=== PATIENT | male | born 1970 | race Caucasian/White ===

== ENCOUNTER 2016-10-19 14:06 | Emergency (ER) | payer BC ==
[2016-10-19 14:42] VITALS: BP 123/82
--- NOTE | 2016-10-19 15:03 | UC ---
Respiratory Complaint HPI - HPI Summary HPI Summary: cough (mild), profuse sinus drainage, headache, back ache, malaise for 5 days[address] with a ST but this is better. Non-smoker, no asthma - History of Current Complaint Chief Complaint: UCRespiratory Stated Complaint: SINUS PRESSURE,CHILLS,LOW BACK PAIN Time Seen by Provider: 10/19/16 14:35 Hx Obtained From: Patient Onset/Duration: Gradual Onset, Lasting Days - 5 Timing: Constant Severity Initially: Mild Severity Currently: Mild Character: Cough: Nonproductive Aggravating Factors: Recumbent Position Alleviating Factors: Nothing Associated Signs And Symptoms: Positive: Chills, URI, Nasal Congestion, Hoarseness, Sinus Discomfort Related History: Similar Episode/Dx as: - bronchitis, sinusitis - Risk Factors Pulmonary Embolism Risk Factors: Negative Cardiac Risk Factors: Negative Pseudomonas Risk Factors: Negative Tuberculosis Risk Factors: Negative - Allergies/Home Medications Allergies/Adverse Reactions: Allergies Allergy/AdvReac Type Severity Reaction Status Date / Time Penicillins Allergy Intermediate Rash Verified 10/19/16 14:37 PMH/Surg Hx/FS Hx/Imm Hx Endocrine History Of: Denies: Diabetes, Thyroid Disease Cardiovascular History Of: Reports: Cardiac Disorders - MURMER Denies: Hypertension Respiratory History Of: Reports: Asthma - A CHILD Denies: COPD GI/ History Of: Denies: Ulcer - Surgical History Surgical History: Yes Surgery Procedure, Year, and Place: Left hand surgery - Family History Known Family History: Positive: Unknown - not aware of any diseases in his family - Social History Occupation: Employed Full-time Lives: With Family Alcohol Use: None Substance Use Type: None Smoking Status (MU): Never Smoked Tobacco - Immunization History Most Recent Influenza Vaccination: NEVER Review of Systems Constitutional: Fever - first few days, Fatigue Skin: Negative Eyes: Negative ENT: Sore Throat, Nasal Discharge Respiratory: Cough Cardiovascular: Negative Gastrointestinal: Negative Genitourinary: Negative Motor: Negative Neurovascular: Negative Musculoskeletal: Negative Neurological: Negative Psychological: Negative All Other Systems Reviewed And Are Negative: Yes Physical Exam Triage Information Reviewed: Yes Appearance: Well-Appearing, No Pain Distress, Well-Nourished Vital Signs: Initial Vital Signs Temp 97.6 F 10/19/16 14:38 Pulse 98 10/19/16 14:38 Resp 16 10/19/16 14:38 BP 123/82 10/19/16 14:38 Pulse Ox 96 10/19/16 14:38 Vital Signs Reviewed: Yes Eye Exam: Normal Eyes: Positive: Conjunctiva Clear ENT: Positive: Hearing grossly normal, Pharyngeal erythema, Nasal congestion, Nasal drainage, TMs normal. Negative: Tonsillar swelling, Tonsillar exudate, Trismus, Muffled/hoarse voice Dental Exam: Normal Neck exam: Normal Neck: Positive: Supple Respiratory Exam: Normal Respiratory: Positive: Lungs clear, Normal breath sounds Cardiovascular Exam: Normal Musculoskeletal Exam: Normal Neurological Exam: Normal Psychological Exam: Normal Skin Exam: Normal UC Diagnostic Evaluation - Laboratory O2 Sat by Pulse Oximetry: 96 Respiratory Course/Dx - Differential Dx/Diagnosis Differential Diagnosis/HQI/PQRI: Bronchitis, Lower Resp Infection, Sinusitis Provider Diagnoses: URI Discharge - Discharge Plan Condition: Stable Disposition: HOME Prescriptions: Azithromycin TAB* [Zithromax TAB (Z-ANAND)*] 250 mg PO .Z-ANAND INSTRUCTIONS #6 tab Hydrocodone Polistirex-Chlorph [Tussionex Pennkinetic Ext 10-8 mg/5Ml] 1 teasp PO BID PRN #100 ml MDD 10cc PRN Reason: Cough Pseudoephedrine HCl [Sudafed 12 Hour] 120 mg PO BID PRN #20 tab PRN Reason: Congestion Patient Education Materials: Upper Respiratory Infection (ED) Referrals: Nancy Anna MD [Primary Care Provider] - Additional Instructions: You can fight this viral infection without an antibiotic. Hold the zithromax in reserve, in case you get worse with fevers over 101, trouble breathing, vomiting , or worsening symptoms
== END 2016-10-19 15:09 | disposition home or self-care (01) ==
LOC: UCCORT 14:06
DX: J06.9 Acute upper respiratory infection, unspecified (principal); Z88.0 Allergy status to penicillin
CPT/HCPCS: 99212; G0463

== ENCOUNTER 2017-03-05 10:22 | Emergency (ER) | payer BC ==
[2017-03-05 11:30] VITALS: BP 111/77
--- NOTE | 2017-03-05 12:10 | UC ---
Skin Complaint HPI - HPI Summary HPI Summary: "c/o thorn from an apple tree in head that occurred last night while at work." He hit the jassi of his head as he was going under a tree. he can't see what's up there. No fevers or chills. no discrge or bleeding that he knows of. painful to touch. - History of Current Complaint Chief Complaint: UCSkin Time Seen by Provider: 03/05/17 12:08 Stated Complaint: THORN IN HEAD - Allergy/Home Medications Allergies/Adverse Reactions: Allergies Allergy/AdvReac Type Severity Reaction Status Date / Time Penicillins Allergy Intermediate Rash Verified 03/05/17 11:26 Review of Systems Constitutional: Negative Skin: Other - see above Eyes: Negative ENT: Negative Respiratory: Negative Cardiovascular: Negative Gastrointestinal: Negative Genitourinary: Negative Motor: Negative Neurovascular: Negative Musculoskeletal: Negative Neurological: Negative Psychological: Negative All Other Systems Reviewed And Are Negative: Yes PMH/Surg Hx/FS Hx/Imm Hx Previously Healthy: Yes Endocrine History Of: Denies: Diabetes, Thyroid Disease Cardiovascular History Of: Reports: Cardiac Disorders - MURMER Denies: Hypertension Respiratory History Of: Reports: Asthma - A CHILD Denies: COPD GI/ History Of: Denies: Ulcer - Surgical History Surgical History: Yes Surgery Procedure, Year, and Place: Left hand surgery - Family History Known Family History: Positive: Cardiac Disease Negative: Hypertension, Diabetes - Social History Alcohol Use: None Substance Use Type: None Smoking Status (MU): Never Smoked Tobacco - Immunization History Most Recent Influenza Vaccination: NEVER Most Recent Tetanus Shot: unsure Physical Exam Triage Information Reviewed: Yes Appearance: Well-Appearing, No Pain Distress, Well-Nourished Vital Signs: Initial Vital Signs Temp 98.2 F 03/05/17 11:27 Pulse 81 03/05/17 11:27 Resp 14 03/05/17 11:27 BP 111/77 03/05/17 11:27 Pulse Ox 96 03/05/17 11:27 Vital Signs Reviewed: Yes Eye Exam: Normal ENT Exam: Normal ENT: Positive: Other: - top of scalp with a dime sized area of minimal swelling with a dark scab centrally. It is tender to touch but I am unable to palpate or visualize any foreigh body. Pt asked for a 2nd opinion and pt was seen by CATHY Guerra who probed area with same opinion, no FB appreciated. not warm to touch. no d/c, no blood. Neck exam: Normal Neck: Positive: Supple, Nontender, No Lymphadenopathy Respiratory Exam: Normal Respiratory: Positive: Lungs clear Cardiovascular Exam: Normal Cardiovascular: Positive: RRR Abdominal Exam: Normal Musculoskeletal Exam: Normal Neurological Exam: Normal Psychological Exam: Normal Skin Exam: Normal Course/Dx - Course Course Of Treatment: scalp trauma with no signs of foreign body. bactrim to prevent cellulitis and abx ointment. he states that he won't f/u with pcp, I encouraged him to do so as sx can worsen as can infection develop. - Differential Diagnoses - Skin Complaint Differential Diagnoses: Abscess, Cellulitis - Diagnoses Provider Diagnoses: trauma to scalp, mild soft tissue swelling, foreign body Discharge - Discharge Plan Condition: Stable Disposition: HOME Prescriptions: Mupirocin 2% OINT* [Bactroban 2 % Oint*] 1 applic TOPICAL BID #1 tube Sulfamethox/Trimethoprim DS* [Bactrim DS 800/160 TAB*] 1 tab PO BID #20 tab Patient Education Materials: Soft Tissue Foreign Body (ED) Referrals: Breanna Flores MD [Primary Care Provider] - 3 Days Additional Instructions: Make sure you complete all of the medicine. Take a probiotic daily while on antibiotics to help prevent c diff. You should follow up with your primary care in 2-3 days. If you develop fever or chills, you should go to ER.
== END 2017-03-05 12:40 | disposition home or self-care (01) ==
LOC: UCCORT 10:22
DX: S00.05XA Superficial foreign body of scalp, initial encounter (principal); W45.8XXA Other foreign body or object entering through skin, initial encounter; W22.8XXA Striking against or struck by other objects, initial encounter; Y93.9 Activity, unspecified; Y92.9 Unspecified place or not applicable; R01.1 Cardiac murmur, unspecified; J45.909 Unspecified asthma, uncomplicated; Z88.0 Allergy status to penicillin
CPT/HCPCS: 99212; G0463

== ENCOUNTER 2017-08-09 06:29 | Inpatient (IN) | payer BC ==
[~2017-08-09 06:29] MED LIST: Buffered Lidocaine 0.9% SYRIN* 5 ML/SYR SYRINGE INTRADERM ONE; Famotidine IV* 10 MG/ML 2 ML (20 mg) IV ONE
[2017-08-09] MEDS ORDERED: DiMENhydriNATE IV* 50 MG/ML VIAL IV PUSH PRN (06:40)
[2017-08-09] MEDS ORDERED: Morphine INJ* 2 MG/ML 1 ML CARPUJECT IV PRN (06:40)
[2017-08-09] MEDS ORDERED: PROCHLORPERAZINE INJ 5 MG/ML 2 ML VIAL IV PRN (06:40)
[2017-08-09] MEDS ORDERED: Scopolamine 1.5 mg* PATCH TRANSDERM PRN (06:40)
[2017-08-09] MEDS ORDERED: Acetaminophen TAB* 325 MG ONE (06:58)
[2017-08-09] MEDS ORDERED: Buffered Lidocaine 0.9% SYRIN* 5 ML/SYR SYRINGE ONE (06:58)
[2017-08-09] MEDS ORDERED: Ciprofloxacin 400MG IVPREMIX(* 400 MG/200 ML BAG ONE (06:58)
[2017-08-09] MEDS ORDERED: Clindamycin 900 MG IVPREMIX(* 900 MG/50 ML SDV IV ONE (06:58)
[2017-08-09] MEDS ORDERED: Famotidine IV* 10 MG/ML 2 ML (20 mg) ONE (06:58)
[2017-08-09] MEDS ORDERED: Heparin VIAL(*) 5000 UNITS/ML VIAL (FIVE THOUSAND) ONE (06:59)
[2017-08-09] MEDS ORDERED: Bupivacaine 0.5% SDV PF* 30 ML VIAL ONE (07:04)
[2017-08-09] MEDS ORDERED: KETAMINE HCL* 50 MG/ML 10 ML VIAL ONE (07:20)
[2017-08-09] MEDS ORDERED: Atracurium* 10 MG/ML 10 ML VIAL ONE (07:20)
[2017-08-09] MEDS ORDERED: Midazolam* 1 MG/ML 5 ML VIAL (5 MG) ONE (07:20)
[2017-08-09] MEDS ORDERED: fentaNYL* 50 MCG/ML 5 ML VIAL (250 MCG VIAL) ONE (07:20)
[2017-08-09] MEDS ORDERED: Bupivacaine 0.25% SDV* 30 ML ONE (07:39)
[2017-08-09] MEDS ORDERED: Propofol* 10 MG/ML 20 ML BTL IV PUSH ONE (08:23)
[2017-08-09] MEDS ORDERED: PROCHLORPERAZINE INJ 5 MG/ML 2 ML VIAL ONE ×2 (08:23→11:10)
[2017-08-09] MEDS ORDERED: Neostigmine Methylsulfate* 2 MG/2 ML SYRINGE ONE ×2 (08:23→09:17)
[2017-08-09] MEDS ORDERED: Ondansetron INJ* 2 MG/ML VIAL ONE (08:23)
[2017-08-09] MEDS ORDERED: Phenylephrine IV* 40 MCG/ML 10 ML SYRINGE ONE (08:23)
[2017-08-09] MEDS ORDERED: EPHEDrine (Pressors)* 50 MG/ML VIAL ONE (08:23)
[2017-08-09] MEDS ORDERED: Lidocaine 2% PF * 5 ML VIAL ONE (08:23)
[2017-08-09] MEDS ORDERED: Morphine INJ* 10 MG/ML 1 ML CARPUJECT ONE (08:23)
[2017-08-09] MEDS ORDERED: Dexamethasone IV* 4 MG/ML 1 ML (4 MG) ONE (08:23)
[2017-08-09] MEDS ORDERED: Glycopyrrolate IV* 0.2 MG/ML 1 ML VIAL ONE ×2 (08:23→09:17)
[2017-08-09] MEDS ORDERED: Metoprolol Tartrate IV* 1 MG/ML 5 ML VIAL ONE (08:46)
[2017-08-09] MEDS ORDERED: Flumazenil* 0.1 MG/ML 5 ML MDV ONE (09:08)
[2017-08-09] MEDS ORDERED: HYDROcodone/ACET. 7.5/325 LIQ* 15 ML UDC PO PRN (09:10)
[2017-08-09] MEDS ORDERED: Ondansetron INJ* 2 MG/ML VIAL IV PRN (09:10)
[2017-08-09] MEDS ORDERED: HYDROmorphone INJ* 2 MG/ML CARPUJECT SYRINGE IV PRN (09:10)
[2017-08-09] MEDS ORDERED: diPHENhydraMINE IV* 50 MG/ML 1 ml VIAL (BENADRYL) SLOW PUSH PRN (09:10)
[2017-08-09] MEDS ORDERED: Acetaminophen ADULT LIQ* 650 MG/20.3 ML UDC PO PRN (09:10)
[2017-08-09] MEDS ORDERED: DiMENhydriNATE IV* 50 MG/ML VIAL ONE (09:36)
[2017-08-09] MEDS ORDERED: Scopolamine 1.5 mg* PATCH ONE (09:36)
[2017-08-09] MEDS ORDERED: fentaNYL* 50 MCG/ML 2 ML VIAL (100 MCG VIAL) ONE (09:49)
[2017-08-09] MEDS: fentaNYL* 50 MCG/ML 2 ML VIAL (100 MCG VIAL) IV PRN ×4 (09:50→10:47)
[2017-08-09] MEDS ORDERED: hydrALAZINE IV* 20 MG/ML VIAL ONE (10:20)
[2017-08-09] MEDS ORDERED: Morphine INJ* 4 MG/ML 1 ML CARPUJECT ONE (11:10)
[2017-08-09] MEDS: Ketorolac INJ* 30 MG/ML 1 ML VIAL IV PRN ×2 (12:17→21:14)
[2017-08-09] MEDS: Heparin VIAL(*) 5000 UNITS/ML VIAL (FIVE THOUSAND) SUBCUT SCH ×2 (13:55→21:14)
[2017-08-09] MEDS: Famotidine IV* 10 MG/ML 2 ML (20 mg) IV SCH (21:14)
--- NOTE | 2017-08-10 04:28 | OP ---
CC: Dr. Breanna Flores* OPERATIVE REPORT: DATE OF OPERATION: 08/09/17 - Inpatient, room SSU 351-01 DATE OF : 70 SURGEON: Ru Caldwell MD WAGON WASHER: Ashley Edwards NP ANESTHESIOLOGIST: René Gayle MD ANESTHESIA: General endotracheal. PRE-OP DIAGNOSIS: Clinically severe obesity. POST-OP DIAGNOSIS: Clinically severe obesity. OPERATIVE PROCEDURE: Laparoscopic sleeve gastrectomy. ESTIMATED BLOOD LOSS: Less than 30 mL. IV FLUIDS: Crystalloid. SPECIMEN: Portion of stomach. DRAINS: None. COMPLICATIONS: None. COUNTS: The instrument, needle, and sponge counts were correct. DESCRIPTION OF PROCEDURE: The patient was brought to the operating room and placed on the table supine. Sequential compression devices were placed on both lower extremities and general anesthesia was administered. The abdomen was prepped and draped in the usual sterile fashion. The patient received appropriate intravenous antibiotics. Time-out was performed. Local anesthetic was infiltrated into the skin and soft tissue prior to making each incision. Entry into the abdomen was through a left upper quadrant incision accommodating 5-mm optical trocar. After accessing the peritoneal cavity, carbon dioxide was insufflated to a pressure of 15 mmHg. Under direct visualization, 5-mm trocar was placed laterally in the left upper quadrant and two 12-mm trocars were placed, one in the supraumbilical midline and one in the right upper quadrant. A Richard liver retractor was placed percutaneously in the subxiphoid position and used to elevate the left lobe of the liver. Inspection of the stomach revealed anatomy to be normal. Dissection proceeded 6 -cm proximal to the pylorus at which point the lesser sac was entered and the greater curvature was skeletonized using LigaSure device. Adhesions in the lesser sac were freed. Mobilization of the stomach proceeded all the way to the gastroesophageal junction completely freeing the stomach from the left chelsie of the diaphragm and also taking down the epigastric fat pad. A sleeve gastrectomy was performed over a 40-Scott[place] Bougie with serial firings of the Endo KIT stapler using purple cartridges with reinforced staple line. Once the division was complete, the specimen was placed to a retrieval bag and retrieved through the right upper quadrant. Incision was subsequently closed with interrupted 0 Polysorb suture. Hemostasis was assured. The ports were removed under direct visualization as was the liver retractor. Skin incisions were closed with kiel. Dressings were applied. The patient tolerated the procedure well, was extubated and transferred to the recovery room in a stable condition. [id number]/[facility] #: [id number] ALYCIA
[2017-08-10] MEDS: Heparin VIAL(*) 5000 UNITS/ML VIAL (FIVE THOUSAND) SUBCUT SCH ×2 (06:30→14:36)
[2017-08-10] MEDS: Famotidine IV* 10 MG/ML 2 ML (20 mg) IV SCH (07:35)
--- NOTE | 2017-08-10 08:03 | PN ---
Progress Note - Progress Note Date of Service: 08/10/17 SOAP: Subjective: He is reporting no pain/N/V. He is tolerating po clears. We discussed surgical findings. Objective: Vital Signs Temp 98.4 F 08/10/17 07:42 Pulse 62 08/10/17 07:42 Resp 17 08/10/17 07:42 BP 120/63 08/10/17 07:42 Pulse Ox 98 08/10/17 07:42 NAD abd: ND, soft, NT, dressings c/d/i Intake & Output 08/09/17 08/10/17 08/10/17 18:59 06:59 18:59 Intake Total 2150 1923 195 Output Total 850 700 Balance 2150 1073 -505 Weight 214 lb 3.2 oz Intake: IV Fluids 2150 1863 CIPRO 400MG 200 CLINDAMYCIN 900MG 50 LR 1900 1863 Oral 60 195 Output: Urine 850 700 Assessment: POD#1 s/p LSG. Doing well. Plan: Cont diet. PO pain meds. RD f/u today. Possible d/c later today vs. AM.
[2017-08-10] MEDS ORDERED: D5W 1/2 NS KCl 20 Meq 1000 ML* 1,000 ML IV SCH (09:14)
[2017-08-10 12:12] VITALS: BP 134/76
--- NOTE | 2017-08-11 03:33 | DS ---
Amended report to enter cosigning physician on report. CC: Dr. Mary De Leon* DISCHARGE SUMMARY: DATE OF ADMISSION: 08/09/17 DATE OF DISCHARGE: 08/10/17 ATTENDING SURGEON: Dr. Ru Caldwell* (dictated by CATHY Sy). HOSPITAL COURSE: Please refer to admission history and physical for admission details. The patient was taken to the operating room on 08/09/17 where he underwent laparoscopic sleeve gastrectomy with Dr. Caldwell. Surgery and postoperative course had been uneventful. As of the afternoon of postoperative day#1, his pain was well controlled with oral hydrocodone/APAP liquid and he was tolerating bariatric clear liquids. PHYSICAL EXAMINATION: From the morning, he is afebrile with stable vital signs. Abdomen was nondistended, soft, and incisional tenderness only with dressings clean, dry, and intact. IMPRESSION: Status post laparoscopic sleeve gastrectomy, doing well. PLAN: Home this evening. Instructions were reviewed regarding dietary guidelines, wound care, and activity. He has a followup set up for next week. He has prescription already for hydrocodone/APAP Elixir. CATHY SY [id number]/[facility] #: [id number] MTDJanie
[2017-08-12] MEDS ORDERED: Scopolomine PATCH Remove* 1 NOTE MISC PATCH OFF ONE (06:42)
== END 2017-08-10 16:30 | disposition home or self-care (01) | DRG 403 ==
LOC: AA 06:29 → SSU 11:51
PROVIDERS: ADMIT Surgery; ATTEND Surgery
PROC: 0DB64Z3 Excision of Stomach, Percutaneous Endoscopic Approach, Vertical (ICD-10-PCS; principal; 2017-08-09 07:45)
DX: E66.01 Morbid (severe) obesity due to excess calories (principal); E78.5 Hyperlipidemia, unspecified; G47.30 Sleep apnea, unspecified; J45.909 Unspecified asthma, uncomplicated; Z88.0 Allergy status to penicillin; Z82.49 Family history of ischemic heart disease and other diseases of the circulatory system; Z68.37 Body mass index [BMI] 37.0-37.9, adult
CPT/HCPCS: 43775; 88307; A9270-GY; J0360; J0744; J0780; J1100; J1170; J1240; J1644; J1885; J2250; J2270; J2405; J2704; J3010